=== PATIENT | female | born 1985 ===

== ENCOUNTER 2021-03-18 09:06 | Outpatient (CLI) | payer OTHER | END 2021-03-18 09:11 | disposition home or self-care (01) | LOC: RX STUDY 09:06 | PROVIDERS: ATTEND Obstetrics & Gynecology Reproductive Endocrinology | DX: N93.0 Postcoital and contact bleeding (principal) ==

== ENCOUNTER 2023-04-28 08:07 | Outpatient (CLI) | payer OTHER | END 2023-04-28 08:18 | disposition home or self-care (01) | LOC: SONOGRAMA 08:07 | PROVIDERS: ATTEND Specialist | DX: N84.0 Polyp of corpus uteri (principal) ==